=== PATIENT | male | born 1940 | race Caucasian/White ===

== ENCOUNTER 2017-07-10 13:13 | Emergency (ER) | payer MEDICARE, BC | END 2017-07-10 15:30 | disposition left against medical advice (07) | LOC: DL.ED 13:13 | DX: Z53.21 Procedure and treatment not carried out due to patient leaving prior to being seen by health care provider (principal) ==

== ENCOUNTER 2017-09-21 15:53 | Emergency (ER) | payer MEDICARE, BC ==
[2017-09-21] MEDS ORDERED: Sodium Chloride 0.9% 10 ML Syringe FLUSH PRN (16:37)
--- NOTE | 2017-09-21 18:09 | EDM.PDOC ---
Scribed by Elaina Hart 09/21/17 [id number] for Lopez Bocanegra MD ED HPI GENERAL MEDICAL PROBLEM - General Chief Complaint: Gastrointestinal Problem Stated Complaint: OWN VEHICLE, BLEEDING FROM RECTUM, 20 MINS OUT Time Seen by Provider: 09/21/17 16:01 Source of Information: Reports: Patient, Family, Old Records, RN, RN Notes Reviewed History Limitations: Reports: No Limitations - History of Present Illness INITIAL COMMENTS - FREE TEXT/NARRATIVE: Pt arrives from home by POV with c/o rectal bleeding with history of hemorrhoid surgery one and half weeks ago by Dr. Ray in [place]. Pt reports having small amounts of blood with BM's since the surgery. Last night he strained and had a moderate sized blood clot with the stool. Today the bleeding has progressively worsened until now when he has a steady oozing of red blood from the anus. Denies any increase in pain. Denies dizziness, lightheadedness, syncope, near syncope, chest pain, or orthostatic dizziness. Onset: Today Duration: Constant Improves with: Reports: None Worsens with: Reports: Other (BMs and physical exertion) Associated Symptoms: Reports: No Other Symptoms - Related Data Allergies Allergy/AdvReac Type Severity Reaction Status Date / Time No Known Allergies Allergy Verified 09/21/17 16:15 Home Meds: Home Meds Aspirin 81 mg PO DAILY 07/10/17 [History] Clopidogrel Bisulfate [Clopidogrel] 75 mg PO DAILY 07/10/17 [History] Metoprolol Succinate 100 mg PO DAILY 07/10/17 [History] Oxybutynin [Oxybutynin ER] 10 mg PO DAILY 07/10/17 [History] Simvastatin 40 mg PO DAILY 07/10/17 [History] amLODIPine Besylate/Benazepril [Amlodipine-Benazepril 5-10 MG] 1 tab PO DAILY [History] Multivitamin [Multi-Day Vitamins] 1 tab PO DAILY 09/21/17 [History] Past Medical History Cardiovascular History: Reports: CAD, High Cholesterol, Hypertension Gastrointestinal History: Reports: Diverticulosis Genitourinary History: Reports: BPH, Renal Calculus, Retention, Urinary, Other ( See Below) (incomplete bladder emptying. Nocturia.) Musculoskeletal History: Reports: Other (See Below) (post polio syndrome) Neurological History: Reports: CVA Endocrine/Metabolic History: Reports: Other (See Below) (impaired fasting blood sugar) - Past Surgical History GI Surgical History: Reports: Appendectomy, Cholecystectomy Social & Family History - Family History Family Medical History: Noncontributory - Living Situation & Occupation Occupation: Retired ED ROS GENERAL - Review of Systems Review Of Systems: ROS reveals no pertinent complaints other than HPI. ED EXAM, GI/ABD - Physical Exam Exam: See Below Exam Limited By: No Limitations General Appearance: Alert, No Apparent Distress Nose: Normal Inspection Throat/Mouth: Normal Inspection Head: Atraumatic, Normocephalic Neck: Normal Inspection Respiratory/Chest: No Respiratory Distress, Lungs Clear, Normal Breath Sounds, No Accessory Muscle Use, Chest Non-Tender Cardiovascular: Regular Rate, Rhythm GI/Abdominal Exam: Normal Bowel Sounds, Soft, Non-Tender, No Distention (Male) Exam: Deferred Rectal (Males) Exam: Other (gross rectal bleeding) Back Exam: Normal Inspection Neurological: Alert, Oriented, Other (chronic/stable lower extremity deficits) Psychiatric: Normal Affect, Normal Mood Skin Exam: Warm, Dry, Intact, Normal Color, No Rash Course - Vital Signs Last Recorded V/S: Last Vital Signs Temp 36.6 C 09/21/17 16:03 Pulse 66 09/21/17 16:03 Resp 18 09/21/17 16:03 BP 138/78 09/21/17 16:03 Pulse Ox 97 09/21/17 16:03 - Orders/Labs/Meds Orders: Active Orders 24 hr Category Date Time Status Peripheral IV Care [RC] . DIRECTED Care 09/21/17 16:38 Active Sodium Chloride 0.9% [Saline Flush] Med 09/21/17 16:37 Active 10 ml FLUSH ASDIRECTED PRN Peripheral IV Insertion Adult [OM.PC] Stat Oth 09/21/17 16:37 Ordered Medication Orders Sodium Chloride (Saline Flush) 10 ml FLUSH ASDIRECTED PRN PRN Reason: Keep Vein Open Last Admin: 09/21/17 17:26 Dose: 10 ml Labs: Laboratory Tests 09/21/17 09/21/17 Range/Units 16:46 16:46 WBC 7.2 (5.0-10.0) 10^3/uL RBC 4.53 L (4.6-6.2) 10^6/uL Hgb 14.7 (14.0-18.0) g/dL Hct 44.9 (40.0-54.0) % MCV 99.1 (80-100) fL MCH 32.5 (27.0-34.0) pg MCHC 32.7 L (33.0-35.0) g/dL Plt Count 255 (150-450) 10^3/uL Neut % (Auto) 68.9 (42.2-75.2) % Lymph % (Auto) 19.9 L (20.5-50.1) % Rich % (Auto) 9.3 H (2-8) % Eos % (Auto) 1.5 (1.0-3.0) % Baso % (Auto) 0.4 (0.0-1.0) % PT 10.3 (9.0-12.0) SEC INR 1.0 (0.9-1.2) APTT 26.0 (22.0-34.0) SEC Meds: Medications Generic Name Dose Route Start Last Admin Trade Name Freq PRN Reason Stop Dose Admin Sodium Chloride 10 ml 09/21/17 16:37 09/21/17 17:26 Saline Flush FLUSH 10 ml ASDIRECTED PRN Administration Keep Vein Open Departure - Departure Time of Disposition: 18:06 Disposition: DC/Tfer to Acute Hospital 02 Condition: Serious Clinical Impression: Rectal bleeding Post-op bleeding Qualifiers: Surgical complication system/body Area: digestive system Procedure type: digestive system Qualified Code(s): K91.840 - Postprocedural hemorrhage of a digestive system organ or structure following a digestive system procedure - Discharge Information Referrals: Wilton Wyatt MD [Primary Care Provider] - Forms: ED Department Discharge, Interfacility Transfer EMTALA - My Orders Last 24 Hours: My Active Orders 09/21/17 16:37 Sodium Chloride 0.9% [Saline Flush] 10 ml FLUSH ASDIRECTED PRN Peripheral IV Insertion Adult [OM.PC] Stat 09/21/17 16:38 Peripheral IV Care [RC] . DIRECTED - Assessment/Plan Last 24 Hours: My Active Orders 09/21/17 16:37 Sodium Chloride 0.9% [Saline Flush] 10 ml FLUSH ASDIRECTED PRN Peripheral IV Insertion Adult [OM.PC] Stat 09/21/17 16:38 Peripheral IV Care [RC] . DIRECTED I have read and agree with the documentation that has been completed regarding this visit. By signing this record, I attest that the documentation was completed in my physical presence and is an accurate record of the encounter.
== END 2017-09-21 18:16 ==
LOC: DL.ED 15:53
DX: K91.840 Postprocedural hemorrhage of a digestive system organ or structure following a digestive system procedure (principal); I10 Essential (primary) hypertension; E78.00 Pure hypercholesterolemia, unspecified; Z79.82 Long term (current) use of aspirin; Z79.899 Other long term (current) drug therapy
CPT/HCPCS: 36415; 85025; 85610; 85730; 99283; J7050

== ENCOUNTER 2020-09-28 08:44 | Day surgery (SDC) | payer MEDICARE, BC ==
[2020-09-28] MEDS ORDERED: Sodium Chloride 0.9% 10 ML Syringe IV ONE (08:45)
[2020-09-28] MEDS ORDERED: Midazolam 1 MG/ML 2 ML SDV IV ONE (08:45)
[2020-09-28] MEDS ORDERED: Dexamethasone 4 MG/ML SDV IV ONE (08:45)
[2020-09-28] MEDS ORDERED: Acetaminophen/Codeine 300-30 MG Tab PO PRN (09:00)
[2020-09-28] MEDS ORDERED: Povidone-Iodine 5% Sterile Ophth Soln 30 ML Bottle EYELF ONE ×2 (09:00→09:56)
[2020-09-28] MEDS ORDERED: Tropicamide 1% Ophth Soln 15 ML Bottle EYELF ONE (09:00)
[2020-09-28] MEDS ORDERED: Proparacaine 0.5% Ophth Soln 15 ML Bottle EYELF ONE (09:00)
[2020-09-28] MEDS ORDERED: Cataract Ophth Solution EYELF ONE (09:00)
[2020-09-28] MEDS ORDERED: Moxifloxacin 0.5% Ophth Soln 3 ML Bottle EYELF ONE (09:00)
[2020-09-28] MEDS ORDERED: Sodium Chloride 0.9% 10 ML Syringe FLUSH PRN (09:00)
[2020-09-28] MEDS ORDERED: Timolol Maleate 0.5% Ophth Soln 5 ML Bottle EYELF ONE (09:00)
[2020-09-28] MEDS ORDERED: Phenylephrine 10% Ophth Soln 5 ML Bot EYELF ONE (09:00)
[2020-09-28] MEDS ORDERED: Ondansetron 4 MG/2 ML SDV IVPUSH PRN (09:00)
[2020-09-28] MEDS ORDERED: Acetaminophen 325 MG Tab PO PRN (09:00)
[2020-09-28] MEDS ORDERED: Tetracaine HCl/PF 0.5% 4 ML Bottle EYELF ONE (09:55)
[2020-09-28] MEDS ORDERED: Apraclonidine 0.5% Ophth Soln 5 ML Bot EYELF ONE (09:58)
[2020-09-28] MEDS ORDERED: Diclofenac Sodium 0.1% Ophth Soln 5 ML Bottle EYELF ONE (09:58)
[2020-09-28] MEDS ORDERED: Dexamethasone/Neomycin/Polymyxin B Ophth Oint 3.5 GM Tube EYELF ONE (09:58)
[2020-09-28] MEDS ORDERED: Lidocaine 1% 30 ML SDV ONE (09:59)
[2020-09-28] MEDS ORDERED: Vancomycin 500 MG SDV ONE (09:59)
[2020-09-28] MEDS ORDERED: Balanced Salt Solution Ophth Irrig 500 ML Bottle IOCULAR ONE (09:59)
[2020-09-28] MEDS ORDERED: Dexamethasone 4 MG/ML SDV IOCULAR ONE (10:03)
--- NOTE | 2020-09-29 09:06 | OR ---
DATE: 09/28/2020 PREOPERATIVE DIAGNOSIS: Visually significant mixed cataract, left eye. POSTOPERATIVE DIAGNOSIS: Visually significant mixed cataract, left eye. PROCEDURE: Extracapsular cataract extraction with intraocular lens implant, left eye. ANESTHESIA: Topical/local MAC. COMPLICATIONS: None. INDICATION: The patient was seen in the clinic with complaints of blurred vision. Examination revealed visually significant mixed cataract. He has difficulty reading a tape measure, difficulty driving, difficulty seeing cars, difficulty with bright lights and glare. I explained options, offered cataract surgery and I explained risks including the potential for infection, retinal detachment, loss of vision, need for additional surgery, amongst others. We discussed implant options. He has requested a monofocal implant. He did see his regular recreation facility attendant, Dr. Collins. Dr. Collins was not able to improve his vision with a change in glasses. OPERATIVE DESCRIPTION: After informed consent was obtained and the risks, benefits, and alternatives were explained, the patient was brought to the operative suite and topical anesthesia was administered. The patient was then prepped and draped in the sterile fashion and attention was placed on the left eye. A sterile lid speculum was placed into the left eye to allow operative exposure. A full-thickness paracentesis was made in the temporal portion of the operative eye. Preservative-free lidocaine 0.1 mL was injected into the anterior chamber followed by viscoelastic. A full-thickness corneal incision was then made into the anterior chamber. A bent needle cystotome was used to create a small pippa in the anterior capsule. The capsulorrhexis forceps was then used to create a 360-degree curvilinear capsulorrhexis. The nucleus was then removed using a phacoemulsification handpiece and the remaining cortical material was then removed with irrigation and aspiration handpiece. Following removal of the cortical material, the capsular bag was then inspected and noted to be free of any holes or tears. Viscoelastic was then injected into the capsular bag and the intraocular lens was inserted into the capsular bag. The viscoelastic material was then removed from both the anterior and posterior chambers and from behind the IOL. The lens and capsular bag were then reinspected. The IOL was well centered and the capsular bag intact. The wound and paracentesis sites were inspected and hydrated with balanced saline solution. Both were found to be self- sealing. The intraocular pressure was assessed digitally and found to be within normal range. A good red reflex was noted at the completion of the procedure. No complications occurred during the operation. At the completion of the procedure, Maxitrol, Voltaren, and Iopidine drops were placed into the operative eye. A sterile eye shield was placed over the operative eye and the patient was transported to the postoperative recovery area having tolerated the procedure well. Postoperative instructions were given along with a postoperative appointment. The patient was advised to call with any questions or concerns. [facility] /[id number]
== END 2020-09-28 11:00 | disposition home or self-care (01) ==
LOC: DL.SDS 08:44
PROVIDERS: ATTEND Ophthalmology
DX: H26.8 Other specified cataract (principal); I10 Essential (primary) hypertension; E78.5 Hyperlipidemia, unspecified; I48.0 Paroxysmal atrial fibrillation; N40.0 Benign prostatic hyperplasia without lower urinary tract symptoms; E03.9 Hypothyroidism, unspecified; E66.09 Other obesity due to excess calories; Z68.27 Body mass index [BMI] 27.0-27.9, adult; Z88.8 Allergy status to other drugs, medicaments and biological substances; Z79.899 Other long term (current) drug therapy; Z86.73 Personal history of transient ischemic attack (TIA), and cerebral infarction without residual deficits
CPT/HCPCS: 00142; A9270-GY; J1100; J2250; J3370; V2632

== ENCOUNTER 2020-10-05 08:20 | Day surgery (SDC) | payer MEDICARE, BC ==
[2020-10-05] MEDS ORDERED: Sodium Chloride 0.9% 10 ML Syringe IV ONE (08:21)
[2020-10-05] MEDS ORDERED: Dexamethasone 4 MG/ML SDV IV ONE (08:21)
[2020-10-05] MEDS ORDERED: Midazolam 1 MG/ML 2 ML SDV IV ONE (08:21)
[2020-10-05] MEDS ORDERED: Cataract Ophth Solution EYERT ONE (08:44)
[2020-10-05] MEDS ORDERED: Tetracaine HCl/PF 0.5% 4 ML Bottle EYERT ONE (09:51)
[2020-10-05] MEDS ORDERED: Povidone-Iodine 5% Sterile Ophth Soln 30 ML Bottle EYERT ONE ×2 (09:52→10:15)
[2020-10-05] MEDS ORDERED: Dexamethasone/Neomycin/Polymyxin B Ophth Oint 3.5 GM Tube EYERT ONE (09:52)
[2020-10-05] MEDS ORDERED: Apraclonidine 0.5% Ophth Soln 5 ML Bot EYERT ONE (09:52)
[2020-10-05] MEDS ORDERED: Vancomycin 500 MG SDV ONE (09:53)
[2020-10-05] MEDS ORDERED: Chondroitin Sulfate/Hyaluronate Sodium Ophth Inj 0.75 ML Syringe EYERT ONE (09:53)
[2020-10-05] MEDS ORDERED: Diclofenac Sodium 0.1% Ophth Soln 5 ML Bottle EYERT ONE (09:53)
[2020-10-05] MEDS ORDERED: Balanced Salt Solution Ophth Irrig 500 ML Bottle IOCULAR ONE (09:53)
[2020-10-05] MEDS ORDERED: Lidocaine 1% 30 ML SDV ONE (09:54)
[2020-10-05] MEDS ORDERED: Dexamethasone 4 MG/ML SDV IOCULAR ONE (09:56)
[2020-10-05] MEDS ORDERED: Sodium Chloride 0.9% 10 ML Syringe FLUSH PRN (10:15)
[2020-10-05] MEDS ORDERED: Acetaminophen/Codeine 300-30 MG Tab PO PRN (10:15)
[2020-10-05] MEDS ORDERED: Proparacaine 0.5% Ophth Soln 15 ML Bottle EYERT ONE (10:15)
[2020-10-05] MEDS ORDERED: Timolol Maleate 0.5% Ophth Soln 5 ML Bottle EYERT ONE (10:15)
[2020-10-05] MEDS ORDERED: Ondansetron 4 MG/2 ML SDV IVPUSH PRN (10:15)
[2020-10-05] MEDS ORDERED: Moxifloxacin 0.5% Ophth Soln 3 ML Bottle EYERT ONE (10:15)
[2020-10-05] MEDS ORDERED: Tropicamide 1% Ophth Soln 15 ML Bottle EYERT ONE (10:15)
[2020-10-05] MEDS ORDERED: Phenylephrine 10% Ophth Soln 5 ML Bot EYERT ONE (10:15)
[2020-10-05] MEDS ORDERED: Acetaminophen 325 MG Tab PO PRN (10:15)
--- NOTE | 2020-10-05 15:58 | OR ---
DATE: 10/05/2020 PREOPERATIVE DIAGNOSIS: Visually significant mixed cataract, right eye. POSTOPERATIVE DIAGNOSIS: Visually significant mixed cataract, right eye. PROCEDURE: Extracapsular cataract extraction with intraocular lens implant, right eye. ANESTHESIA: Topical/local MAC. COMPLICATIONS: None. INDICATION: Mr. Casper was seen in the clinic. He is unhappy with his vision noticing a slow progressive change. He has difficulty with carpentry, difficulty reading a tape measure, difficulty with bright lights and glare, difficulty seeing cars. His examination revealed visually significant mixed cataract. I explained options, offered cataract surgery and I explained risks including the potential for infection, retinal detachment, loss of vision, need for additional surgery, amongst others. We discussed implant options. He has requested a monofocal implant. He is comfortable wearing glasses following surgery if necessary. He did see his regular wellness guide, Dr. Collins. Dr. Collins was not able to improve his vision and meet his visual needs with the change in glasses. OPERATIVE DESCRIPTION: After informed consent was obtained and the risks, benefits, and alternatives were explained, the patient was brought to the operative suite and topical anesthesia was administered. The patient was then prepped and draped in the sterile fashion and attention was placed on the right eye. A sterile lid speculum was placed into the right eye to allow operative exposure. A full-thickness paracentesis was made in the temporal portion of the operative eye. Preservative-free lidocaine 0.1 mL was injected into the anterior chamber followed by viscoelastic. A full-thickness corneal incision was then made into the anterior chamber. A bent needle cystotome was used to create a small pippa in the anterior capsule. The capsulorrhexis forceps was then used to create a 360-degree curvilinear capsulorrhexis. The nucleus was then removed using a phacoemulsification handpiece and the remaining cortical material was then removed with irrigation and aspiration handpiece. Following removal of the cortical material, the capsular bag was then inspected and noted to be free of any holes or tears. Viscoelastic was then injected into the capsular bag and the intraocular lens was inserted into the capsular bag. The viscoelastic material was then removed from both the anterior and posterior chambers and from behind the IOL. The lens and capsular bag were then reinspected. The IOL was well centered and the capsular bag intact. The wound and paracentesis sites were inspected and hydrated with balanced saline solution. Both were found to be self- sealing. The intraocular pressure was assessed digitally and found to be within normal range. A good red reflex was noted at the completion of the procedure. No complications occurred during the operation. At the completion of the procedure, Maxitrol, Voltaren, and Iopidine drops were placed into the operative eye. A sterile eye shield was placed over the operative eye and the patient was transported to the postoperative recovery area having tolerated the procedure well. Postoperative instructions were given along with a postoperative appointment. The patient was advised to call with any questions or concerns. [facility] /[id number]
== END 2020-10-05 11:03 | disposition home or self-care (01) ==
LOC: DL.SDS 08:20
PROVIDERS: ATTEND Ophthalmology
DX: H26.8 Other specified cataract (principal); I10 Essential (primary) hypertension; E78.5 Hyperlipidemia, unspecified; I48.0 Paroxysmal atrial fibrillation; N40.0 Benign prostatic hyperplasia without lower urinary tract symptoms; Z86.73 Personal history of transient ischemic attack (TIA), and cerebral infarction without residual deficits
CPT/HCPCS: 66984; A9270; J1100; J2250; J3370; V2632